=== PATIENT | female | born 1945 | race African-American/Black ===

== ENCOUNTER 2019-02-21 12:31 | Inpatient (IN) | payer MEDICAID, MEDICARE, OTHER ==
[~2019-02-21] VITALS: Ht 165.1 cm; Wt 64.3 kg
[2019-02-21 13:27] LABS: Basophils # (auto) 0.1 uL; Eosinophils # (auto) 0 uL; Hemoglobin 14.6 g/dL (12.2-16.2); Monocytes # (auto) 0.5 uL; Nucleated Red Blood Cells % 0.1 %
[2019-02-21 13:29] LABS: Basophils % (auto) 1.2 % (0.0-2.0); Eosinophils % (auto) 0.1 % (0.0-7.0); Hematocrit 41.2 % (36.0-46.0); Lymphocytes # (auto) 2.2 uL; Lymphocytes % (auto) 47.8 % (10.0-50.0); Mean Corpuscular Hemoglobin 34.8 pg (28.0-32.0); Mean Corpuscular Hgb Conc. 35.4 g/dL (32.0-36.0); Mean Corpuscular Volume 98.3 fL (80.0-100.0); Monocytes % (auto) 11.6 % (0.0-12.0); Neutrophils # (auto) 1.8 uL; Neutrophils % (auto) 39.3 % (37.0-80.0); Platelet Count (auto) 106 10^3/uL (140-450); Red Blood Cells 4.19 10^6/uL (4.0-5.20); Red Cell Distribution Width 13.5 % (11.8-14.3); White Blood Cell 4.7 10^3/uL (4.4-10.8)
[2019-02-21 13:48] LABS: Alanine Aminotransferase 31 U/L (13-56); Albumin 3.9 g/dL (3.4-5.0); Anion Gap 5 (5-15); Aspartate Aminotransferase 27 U/L (15-37); Calcium 9.1 mg/dL (8.5-10.1); Carbon Dioxide 30 mmol/L (21-32); Chloride 108 mmol/L (98-107); GFR African American 87 mL/min; GFR Non-African American 72 mL/min; Glucose 81 mg/dL (74-106); Magnesium 2.1 mg/dL (1.6-2.6); Potassium 3.8 mmol/L (3.5-5.1); Sodium 143 mmol/L (136-145)
[2019-02-21 13:53] LABS: Alkaline Phosphatase 58 U/L (45-117); BUN/Creatinine Ratio 20.7; Blood Urea Nitrogen 17 mg/dL (7-18); Total Protein 7.2 g/dL (6.4-8.2)
[2019-02-21] MEDS ORDERED: clonazePAM 0.5 MG TAB PO ONE (14:15)
[2019-02-21] MEDS ORDERED: ONDANSETRON HCL 4 MG/2 ML VIAL IV ONE (14:15)
[2019-02-21] MEDS ORDERED: MORPHINE SULF INJ 2 MG/ML SYRINGE 1ML IV ONE (14:15)
[2019-02-21] MEDS ORDERED: cloNIDine HCL 0.1 MG TAB PO ONE (14:30)
[2019-02-21 14:43] LABS: Urine WBC None Seen /hpf (0 - 5)
[2019-02-21 14:44] LABS: INR 1.01 (0.9-1.15); Partial Thromboplastin Time 24.5 sec (23.64-32.05)
[2019-02-21 14:57] LABS: Urine Bacteria NONE SEEN /hpf (None Seen); Urine Blood Negative /uL (Negative); Urine Specific Gravity 1.003 (1.001-1.035)
[2019-02-21] MEDS ORDERED: ACETAMINOPHEN 500 MG TAB PO PRN (18:30)
[2019-02-21] MEDS ORDERED: ONDANSETRON HCL 4 MG/2 ML VIAL IV PRN (18:30)
[2019-02-21] MEDS ORDERED: TEMAZEPAM 15 MG CAP PO PRN (18:30)
[2019-02-21] MEDS ORDERED: MORPHINE SULF INJ 2 MG/ML SYRINGE 1ML IV PRN (18:30)
[2019-02-21] MEDS ORDERED: NITROGLYCERIN 0.4 MG SL TAB SL PRN (18:30)
[2019-02-21] MEDS ORDERED: traMADol HCL 50 MG TAB PO PRN (18:30)
[2019-02-21] MEDS ORDERED: predniSONE 5 MG TAB PO ONE (19:00)
[2019-02-21 19:33] LABS: Cannabinoid Screen, Urine NEGATIVE (NEGATIVE)
[2019-02-21 19:37] LABS: Alcohol, Urine < 3.0 mg/dL (0-5); Amphetamine Screen, Urine NEGATIVE (NEGATIVE); Barbiturate Scree,Urine NEGATIVE (NEGATIVE); Benzodiazephine Screen, Urine NEGATIVE (NEGATIVE); Cocaine Screen, Urine NEGATIVE (NEGATIVE); Opiate Scree,Urine NEGATIVE (NEGATIVE); Phencyclidine Screen, Urine NEGATIVE (NEGATIVE)
[2019-02-21 20:17] VITALS: BP 93/57
--- NOTE | 2019-02-21 20:20 | NUR ---
Telemetry admit from [facility] ALFARO admitted to Telemetry unit. Patient oriented to KIARA BONNER, primary RN, unit, room, bed, and unit policies regarding patient care and visiting hours. Patient now on continuous telemetry monitoring, tele box # [id number] and telemetry reading on arrival to unit is sinus rhythm. Patient weighed by bedscale and encouraged to to call as needed, patient verbalized understanding. All questions and concerns addressed, patient verbalized understanding. Bed is locked in lowest position, side rails x 2 are up, call light is within reach, and bed alarm is on.
[2019-02-21] MEDS: ATORVASTATIN 20 MG TAB PO SCH (21:41)
[2019-02-21] MEDS: SODIUM CHLOR 0.9% PF (SALINE LOCK) 10ML VIAL/SYR IV SCH (21:41)
[2019-02-21] MEDS ORDERED: PRE1T PO (22:18)
[2019-02-21] MEDS ORDERED: LISI40TA PO (22:19)
[2019-02-22] VITALS (7 sets, daily range): BP systolic 93–135; BP diastolic 54–88
[2019-02-22] MEDS: hydrALAZINE HCL 10 MG TAB PO SCH ×4 (00:10→18:08)
[2019-02-22] MEDS: SODIUM CHLOR 0.9% PF (SALINE LOCK) 10ML VIAL/SYR IV SCH ×3 (05:22→21:36)
--- NOTE | 2019-02-22 07:45 | NUR ---
OPENING NOTE ASSUMED CARE OF PT. ALERT AND ORIENTED. NO S/S OF SOB/DISTRESS NOTED. DENIES PAIN. SAFETY PRECAUTIONS IN PLACE. BED SET TO LOWEST POSITION/LOCKED. BEDSIDE RAILS UP X2. BED ALARM ON. CALL LIGHT WITHIN REACH. INSTRUCTED PT TO CALL FOR ASSISTANCE. UPDATED ON POC. PT VERBALIZED UNDERSTANDING AND WILL CONTINUE TO MONITOR Q1HR AND PRN.
[2019-02-22] MEDS: ASPirin 81 mg TAB PO SCH (09:59)
[2019-02-22] MEDS: predniSONE 5 MG TAB PO SCH (09:59)
[2019-02-22] MEDS: ENALAPRIL MALEATE 10 MG TAB PO SCH (10:00)
[2019-02-22] MEDS: NITROGLYCERIN 0.2MG/HR TOPICAL PATCH TD SCH (10:00)
[2019-02-22] MEDS: ENOXAPARIN SOD 40 MG/0.4 ML SYRINGE SC SCH (10:00)
--- NOTE | 2019-02-22 12:30 | NUR ---
MD DR. BECERRA AT BEDSIDE, DISCUSSED POC WITH PATIENT. PER DR. BECERRA PATIENT IS CLEARED FROM CARDIOLOGY STANDPOINT. PATIENT CAN FOLLOW-UP OUTPATIENT.
--- NOTE | 2019-02-22 19:00 | NUR ---
Opening Shift Note Assumed care of patient, awake and alert. No S/S of distress/SOB or pain. Instructed on POC and to call for assist PRN, will continue to monitor for changes Q1hr and PRN.
--- NOTE | 2019-02-22 20:42 | NUR ---
Hospitalist paged: Hospitalist paged d/t patient requesting to have a stool softener in case she requires it. Hospitalist returned call immediately and orders received and verified.
[2019-02-22] MEDS: ATORVASTATIN 20 MG TAB PO SCH (21:36)
[2019-02-22] MEDS: DOCUSATE SOD 100 MG CAP PO PRN (21:37)
[2019-02-23 04:39] VITALS: BP 137/71
[2019-02-23] MEDS: SODIUM CHLOR 0.9% PF (SALINE LOCK) 10ML VIAL/SYR IV SCH ×2 (05:44→12:51)
[2019-02-23] MEDS: hydrALAZINE HCL 10 MG TAB PO SCH ×3 (05:45→12:51)
[2019-02-23 08:54] VITALS: BP 144/59
[2019-02-23] MEDS: ENOXAPARIN SOD 40 MG/0.4 ML SYRINGE SC SCH (09:40)
[2019-02-23] MEDS: DOCUSATE SOD 100 MG CAP PO PRN (09:40)
[2019-02-23] MEDS: ASPirin 81 mg TAB PO SCH (09:41)
[2019-02-23] MEDS: predniSONE 5 MG TAB PO SCH (09:41)
[2019-02-23] MEDS: NITROGLYCERIN 0.2MG/HR TOPICAL PATCH TD SCH (09:42)
[2019-02-23] MEDS: ENALAPRIL MALEATE 10 MG TAB PO SCH (09:42)
[2019-02-23 13:00] VITALS: BP 155/89
[2019-02-23 15:03] VITALS: BP 145/89
--- NOTE | 2019-02-23 16:23 | NUR ---
CALLED MD BECERRA DUE TO ORDERS PUT IN AFTER PT DISCHARGE ORDER BY MD GONZALEZ, PER MARIAM PT CAN FOLLOW UP WITH HIM ON OUTPATIENT TO DO ECHO AND STRESS TEST
[2019-02-23 16:52] VITALS: BP 157/84
== END 2019-02-23 17:05 | disposition home or self-care (01) | DRG 305 ==
LOC: EDBD 12:31 → ER 12:45 → TELE 12:46 → TELE-WESTW 20:19
PROVIDERS: ADMIT Internal Medicine; ATTEND Internal Medicine
DX: I16.1 Hypertensive emergency (principal); M19.90 Unspecified osteoarthritis, unspecified site; I10 Essential (primary) hypertension; I16.0 Hypertensive urgency; E78.5 Hyperlipidemia, unspecified; Z85.3 Personal history of malignant neoplasm of breast; Z90.11 Acquired absence of right breast and nipple
CPT/HCPCS: 36415; 71045; 80053; 80307; 81001; 82550; 83735; 84443; 84484; 85025; 85610; 85652; 85730; 93005; G0378; J2405

== ENCOUNTER 2022-02-23 11:20 | Emergency (ER) | payer OTHER, MEDICAID ==
[~2022-02-23] VITALS: Ht 162.6 cm; Wt 59.7 kg
[~2022-02-23 11:20] MED LIST: PRE1T PO
[2022-02-23 11:33] VITALS: BP 211/110
[2022-02-23] MEDS ORDERED: amLODIPine BESYLATE 5 MG TAB PO ONE (12:45)
[2022-02-23] MEDS ORDERED: GEN03OS OP (13:33)
[2022-02-23 14:02] LABS: Basophils # (auto) 0 10 ^3/uL (0-0.2); Basophils % (auto) 0.7 % (0.0-2.0); Eosinophils # (auto) 0 10 ^3/uL (0-0.8); Hemoglobin 13.7 g/dL (12.2-16.2); Lymphocytes # (auto) 0.8 10 ^3/uL (0.4-5.4); Lymphocytes % (auto) 22.5 % (10.0-50.0); Mean Corpuscular Hemoglobin 32.3 pg (28.0-32.0); Mean Corpuscular Hgb Conc. 31.1 g/dL (32.0-36.0); Mean Corpuscular Volume 103.7 fL (80.0-100.0); Monocytes # (auto) 0.4 10 ^3/uL (0-1.3); Monocytes % (auto) 11.2 % (0.0-12.0); Neutrophils # (auto) 2.2 10 ^3/uL (1.6-8.6); Neutrophils % (auto) 65.6 % (37.0-80.0); Nucleated Red Blood Cells % 0.1 %; Red Blood Cells 4.24 10^6/uL (4.0-5.20); White Blood Cell 3.3 10^3/uL (4.4-10.8)
[2022-02-23 14:05] LABS: Calcium 9.4 mg/dL (8.5-10.1); Potassium 4.2 mmol/L (3.5-5.1)
[2022-02-23 14:09] LABS: BUN/Creatinine Ratio 21.7; Bilirubin, Total 0.9 mg/dL (0.2-1.0); Total Protein 6.6 g/dL (6.4-8.2)
== END 2022-02-23 17:34 | disposition home or self-care (01) ==
LOC: ER 11:20
DX: H10.31 Unspecified acute conjunctivitis, right eye (principal); I16.0 Hypertensive urgency; I10 Essential (primary) hypertension
CPT/HCPCS: 36415; 70450; 80053; 84484; 85025